=== PATIENT | female | born 1970 | race Caucasian/White ===

== ENCOUNTER 2018-09-15 13:04 | Emergency (ER) | payer MEDICAID ==
[2018-09-15 13:17] VITALS: BP 166/103
--- NOTE | 2018-09-15 13:46 | EDPHY ---
H & P Stated Complaint: left shoulder chronic pain . has appt on 10/01 w ortho . Time Seen by Provider: 09/15/18 13:22 HPI/ROS: Chief Complaint: Shoulder pain HPI: 47-year-old woman who is been having muscle spasms and pain in her left posterior shoulder intermittently for several years. The symptoms began after she had a cervical spine surgery several years ago. She is followed up with orthopedist multiple times. She has had ablations done to her nerves. She is also diagnosed with rotator cuff injury on her right shoulder but states for the last 4 days for left shoulder been increasingly sore. Does not hurt to move. Symptoms got worse after she had a massage last Saturday. She has been taking ibuprofen and Flexeril, continuing to apply heat without any relief. No new numbness or weakness. No fevers or chills. She is not dropping things. No new injuries. There are no other aggravating or alleviating factors. She does have an appoint with orthopedist at the end of the month. No cough. No shortness of breath. No chest pain. No neck pain. ROS: 10 systems were reviewed and were negative except those elements noted in the HPI. PMH: Cervical radiculopathy, chronic shoulder pain Social History: No smoking, no alcohol, no recreational drug use Family History: non-contributory Physical Exam: Gen: Awake, Alert, No Distress HEENT: Nose: no rhinorrhea Eyes: PERRLA, EOMI Mouth: Moist mucosa Neck: Supple, no JVD Chest: nontender, lungs clear to auscultation Back: no CVA tenderness, no midline tenderness Ext: no edema, right shoulder: She has palpable muscle spasm in the supraspinatus and infraspinatus. No masses. No lymphadenopathy Skin: no rash Neuro: CN II-XII intact, Sensation grossly intact, Strength 5/5 in bilateral upper and lower extremities, she is neurologically intact in the radial, median , and ulnar nerve distribution. Radial and ulnar pulses are normal. Sensations intact over the deltoid. - Personal History LMP (Females 10-55): Irregular Current Tetanus Diphtheria and Acellular Pertussis (TDAP): Yes Tetanus Vaccine Date: November 2010 - Medical/Surgical History Hx Asthma: No Hx Chronic Respiratory Disease: No Hx Diabetes: No Hx Cardiac Disease: No Hx Renal Disease: No Hx Cirrhosis: No Hx Alcoholism: No Hx HIV/AIDS: No Hx Splenectomy or Spleen Trauma: No Other PMH: fusion C5-C6, history of Crohns. appy, fibroid. Chronic pain - Social History Smoking Status: Current every day smoker Constitutional: Initial Vital Signs Temperature (C) 37 C 09/15/18 13:11 Heart Rate 71 09/15/18 13:11 Respiratory Rate 16 09/15/18 13:11 Blood Pressure 166/103 H 09/15/18 13:11 O2 Sat (%) 98 09/15/18 13:11 O2 Delivery Mode Room Air Allergies/Adverse Reactions: No Known Allergies Allergy (Verified 09/15/18 13:17) Home Medications: Medication Instructions Recorded Cyclobenzaprine 09/15/18 Medical Decision Making ED Course/Re-evaluation: 47-year-old woman presenting with complaints of left shoulder pain which is chronic. No new injuries. She is neurologically intact. No symptoms suggesting infection or acute neurologic process. She is currently being followed by an orthopedist for this. She is taking anti-inflammatories. Muscle relaxants. She is applying heat getting massage. I have recommended that he massage may not be the best treatments at this time. She will continue using ice. I suggested she might try acupuncture as well. No evidence of acute pulmonary process. No lymphadenopathy. Otherwise she has an appointment with her orthopedist. This is a chronic problem. I do not feel that x-rays or other imaging is appropriate at this time. Patient and I have discussed the limitations of the treating chronic pain in the emergency department. She understands that we do not necessarily have the resources to diagnosis source of her chronic problem. She understands of following up with her orthopedist spine doctors or her best option. Departure - Departure Disposition: Home, Routine, Self-Care Clinical Impression: Shoulder pain Condition: Good Instructions: Shoulder Sprain (ED) Additional Instructions: Take ibuprofen, 600 mg, 3 times a day. You may also take acetaminophen, 1000 mg every 6 hours. You may replace a Lidoderm patch every 24 hr, these are available over-the- counter. Apply ice for 15 minutes of every hour while awake. Make sure to remain active. Did do not lay in bed or sit in a chair for long periods. Follow up with your orthopedist for further evaluation. Referrals: NONE *PRIMARY CARE P,. [Primary Care Provider] - As per Instructions
== END 2018-09-15 13:53 | disposition home or self-care (01) ==
LOC: CED 13:04
DX: M25.512 Pain in left shoulder (principal); G89.29 Other chronic pain; F17.200 Nicotine dependence, unspecified, uncomplicated